=== PATIENT | female | born 1945 | race Caucasian/White ===

== ENCOUNTER 2021-09-22 01:19 | Inpatient (IN) | payer BC, OTHER ==
[~2021-09-22] VITALS: Ht 154.9 cm; Wt 63.5 kg
[2021-09-22 03:05] LABS: Basophils # (auto) 0.1 10 ^3/uL (0-0.2); Basophils % (auto) 0.7 % (0.0-2.0); Eosinophils # (auto) 0.1 10 ^3/uL (0-0.8); Eosinophils % (auto) 0.5 % (0.0-7.0); Hematocrit 42.7 % (36.0-46.0); Hemoglobin 14.3 g/dL (12.2-16.2); Lymphocytes # (auto) 1.7 10 ^3/uL (0.4-5.4); Lymphocytes % (auto) 10.9 % (10.0-50.0); Mean Corpuscular Hemoglobin 32.3 pg (28.0-32.0); Mean Corpuscular Hgb Conc. 33.6 g/dL (32.0-36.0); Mean Corpuscular Volume 96.4 fL (80.0-100.0); Monocytes # (auto) 0.8 10 ^3/uL (0-1.3); Monocytes % (auto) 5.3 % (0.0-12.0); Neutrophils # (auto) 12.8 10 ^3/uL (1.6-8.6); Neutrophils % (auto) 82.6 % (37.0-80.0); Nucleated Red Blood Cells % 0.1 %; Red Blood Cells 4.43 10^6/uL (4.0-5.20); Red Cell Distribution Width 12.3 % (11.8-14.3); White Blood Cell 15.4 10^3/uL (4.4-10.8)
[2021-09-22 03:25] LABS: Magnesium 3.2 mg/dL (1.6-2.6); Potassium 3.5 mmol/L (3.5-5.1)
[2021-09-22 03:31] LABS: BUN/Creatinine Ratio 22.2; Bilirubin, Total 1.5 mg/dL (0.2-1.0); Total Protein 7.5 g/dL (6.4-8.2)
[2021-09-22 06:07] LABS: Urine Bacteria NONE SEEN /hpf (None Seen); Urine Blood Negative /uL (Negative); Urine Mucus FEW (None Seen); Urine Specific Gravity 1.022 (1.001-1.035); Urine WBC 1 /hpf (0 - 5)
[2021-09-22] MEDS ORDERED: ONDANSETRON HCL 4 MG/2 ML VIAL IV ONE (07:00)
[2021-09-22] MEDS ORDERED: MORPHINE SULFATE 4 MG/ML SYR/VIAL IV ONE (07:00)
[2021-09-22] MEDS ORDERED: SODIUM CHLORIDE 0.9% 1,000 ML IVB ONE (07:00)
[2021-09-22] MEDS ORDERED: metroNIDAZOLE 500MG/100ML 100 ML IV ONE (07:00)
[2021-09-22] MEDS ORDERED: MORPHINE SULFATE INJECTION 2 MG/ML SYRG IV PRN ×2 (09:00→09:15)
[2021-09-22] MEDS ORDERED: NITROGLYCERIN 0.4 MG SL TAB SL PRN (09:00)
[2021-09-22] MEDS ORDERED: ONDANSETRON HCL 4 MG/2 ML VIAL IV PRN (09:15)
[2021-09-22] MEDS ORDERED: cefTRIAXone 1GM/50ML D5W 50 ML IV ONE (09:15)
[2021-09-22] MEDS ORDERED: traMADol HCL 50 MG TAB PO PRN (09:15)
[2021-09-22] MEDS ORDERED: ACETAMINOPHEN 500 MG TAB PO PRN (09:15)
[2021-09-22] MEDS ORDERED: DEXTROSE (50%) 50ML SYRG IV PRN (09:15)
[2021-09-22] MEDS: SODIUM CHLORIDE 0.9% 1,000 ML IV SCH ×2 (10:11→19:15)
[2021-09-22] MEDS: PANTOPRAZOLE 40 MG TAB PO SCH (12:17)
[2021-09-22] MEDS: ACCU-CHEK COMFORT CURVE STRIP VI SCH ×3 (12:18→21:13)
[2021-09-22] MEDS: InsuLIN REG 1unit/0.01ml Soln (100units/ml) SC SCH ×3 (12:25→21:13)
[2021-09-22 13:19] LABS: Urine Bacteria FEW /hpf (None Seen); Urine Blood 3+ /uL (Negative); Urine Mucus FEW (None Seen); Urine Specific Gravity 1.014 (1.001-1.035); Urine WBC 72 /hpf (0 - 5)
[2021-09-22] MEDS: metroNIDAZOLE 500MG/100ML 100 ML IV SCH ×2 (14:07→21:21)
[2021-09-22 14:40] LABS: Hematocrit 37.7 % (36.0-46.0); Hemoglobin 12.9 g/dL (12.2-16.2)
[2021-09-22] MEDS ORDERED: VALS160T53 PO (16:39)
[2021-09-22] MEDS ORDERED: BIMA0.01 EACHEYE (16:39)
[2021-09-22] MEDS ORDERED: METF-370 PO (16:39)
[2021-09-22] MEDS ORDERED: SIMV-8 PO (16:39)
[2021-09-22 17:24] VITALS: BP 147/76
[2021-09-22 18:54] LABS: Hematocrit 37.3 % (36.0-46.0); Hemoglobin 13.1 g/dL (12.2-16.2)
[2021-09-22 22:00] VITALS: BP 138/70
[2021-09-23 00:47] LABS: Hematocrit 36.3 % (36.0-46.0); Hemoglobin 12.2 g/dL (12.2-16.2)
[2021-09-23] MEDS: SODIUM CHLORIDE 0.9% 1,000 ML IV SCH ×2 (04:46→16:00)
[2021-09-23 05:00] VITALS: BP 108/59
[2021-09-23 05:40] LABS: Basophils # (auto) 0 10 ^3/uL (0-0.2); Basophils % (auto) 0.4 % (0.0-2.0); Eosinophils # (auto) 0.1 10 ^3/uL (0-0.8); Eosinophils % (auto) 0.8 % (0.0-7.0); Hematocrit 35.5 % (36.0-46.0); Hemoglobin 11.9 g/dL (12.2-16.2); Lymphocytes # (auto) 1.9 10 ^3/uL (0.4-5.4); Lymphocytes % (auto) 16.7 % (10.0-50.0); Mean Corpuscular Hemoglobin 32.6 pg (28.0-32.0); Mean Corpuscular Hgb Conc. 33.6 g/dL (32.0-36.0); Mean Corpuscular Volume 97.2 fL (80.0-100.0); Monocytes # (auto) 0.9 10 ^3/uL (0-1.3); Neutrophils # (auto) 8.6 10 ^3/uL (1.6-8.6); Neutrophils % (auto) 74.1 % (37.0-80.0); Nucleated Red Blood Cells % 0.1 %; Red Blood Cells 3.65 10^6/uL (4.0-5.20); Red Cell Distribution Width 12.3 % (11.8-14.3); White Blood Cell 11.6 10^3/uL (4.4-10.8)
[2021-09-23 06:12] LABS: Potassium 3.6 mmol/L (3.5-5.1)
[2021-09-23] MEDS: InsuLIN REG 1unit/0.01ml Soln (100units/ml) SC SCH ×4 (06:13→21:29)
[2021-09-23] MEDS: ACCU-CHEK COMFORT CURVE STRIP VI SCH ×4 (06:14→21:30)
[2021-09-23] MEDS: metroNIDAZOLE 500MG/100ML 100 ML IV SCH ×3 (06:18→22:24)
[2021-09-23 06:23] LABS: BUN/Creatinine Ratio 7.8; Calcium 8.1 mg/dL (8.5-10.1)
[2021-09-23 06:25] LABS: Bilirubin, Total 1.5 mg/dL (0.2-1.0); Total Protein 5.3 g/dL (6.4-8.2)
[2021-09-23 08:30] VITALS: BP 122/67
[2021-09-23] MEDS: cefTRIAXone 1GM/50ML D5W 50 ML IV SCH (08:41)
[2021-09-23] MEDS: PANTOPRAZOLE 40 MG TAB PO SCH (08:41)
[2021-09-23 13:30] VITALS: BP 129/79
[2021-09-23] MEDS ORDERED: GOLYTELY 4L KIT PO ONE (14:15)
[2021-09-23 16:30] VITALS: BP 122/69
[2021-09-23 22:00] VITALS: BP 157/80
[2021-09-24] VITALS (7 sets, daily range): BP systolic 111–140; BP diastolic 63–78
[2021-09-24] MEDS: ACCU-CHEK COMFORT CURVE STRIP VI SCH ×4 (07:00→21:35)
[2021-09-24] MEDS: InsuLIN REG 1unit/0.01ml Soln (100units/ml) SC SCH ×4 (07:00→21:34)
[2021-09-24] MEDS: SODIUM CHLORIDE 0.9% 1,000 ML IV SCH ×3 (07:39→17:55)
[2021-09-24] MEDS: metroNIDAZOLE 500MG/100ML 100 ML IV SCH ×3 (07:39→21:34)
[2021-09-24 08:25] LABS: INR 1.08 (0.9-1.15); Partial Thromboplastin Time 27.2 sec (23.6-33.0)
[2021-09-24 08:28] LABS: BUN/Creatinine Ratio 4.3; Calcium 8.6 mg/dL (8.5-10.1); Potassium 3.5 mmol/L (3.5-5.1)
[2021-09-24] MEDS ORDERED: SODIUM CHLORIDE LOCK 10 ML ONE (08:55)
[2021-09-24] MEDS ORDERED: diphenhdrAMINE HCL 50 MG/1 ML VL ONE (08:56)
[2021-09-24] MEDS: PANTOPRAZOLE 40 MG TAB PO SCH ×2 (09:28→14:35)
[2021-09-24] MEDS: cefTRIAXone 1GM/50ML D5W 50 ML IV SCH (09:28)
[2021-09-24] MEDS: fentaNYL CITRATE 100 MCG/2 ML VL ONE ×3 (12:50→12:57)
[2021-09-24] MEDS: MIDAZOLAM HCL 5 MG/ML-1ML VIAL ONE ×3 (12:50→12:57)
[2021-09-25 05:25] VITALS: BP 129/69
[2021-09-25] MEDS: metroNIDAZOLE 500MG/100ML 100 ML IV SCH ×2 (05:48→14:30)
[2021-09-25] MEDS: ACCU-CHEK COMFORT CURVE STRIP VI SCH ×2 (06:02→11:25)
[2021-09-25] MEDS: InsuLIN REG 1unit/0.01ml Soln (100units/ml) SC SCH ×2 (06:03→11:25)
[2021-09-25] MEDS: SODIUM CHLORIDE 0.9% 1,000 ML IV SCH (07:00)
[2021-09-25 07:10] LABS: Basophils # (auto) 0.1 10 ^3/uL (0-0.2); Basophils % (auto) 0.5 % (0.0-2.0); Eosinophils # (auto) 0.2 10 ^3/uL (0-0.8); Eosinophils % (auto) 2.4 % (0.0-7.0); Hematocrit 33.5 % (36.0-46.0); Hemoglobin 11.5 g/dL (12.2-16.2); Lymphocytes # (auto) 1.8 10 ^3/uL (0.4-5.4); Lymphocytes % (auto) 18.6 % (10.0-50.0); Mean Corpuscular Hgb Conc. 34.2 g/dL (32.0-36.0); Mean Corpuscular Volume 96.4 fL (80.0-100.0); Monocytes # (auto) 0.7 10 ^3/uL (0-1.3); Monocytes % (auto) 7.3 % (0.0-12.0); Neutrophils % (auto) 71.2 % (37.0-80.0); Nucleated Red Blood Cells % 0.1 %; Red Blood Cells 3.47 10^6/uL (4.0-5.20); Red Cell Distribution Width 11.8 % (11.8-14.3); White Blood Cell 9.9 10^3/uL (4.4-10.8)
[2021-09-25 08:30] VITALS: BP 138/71
[2021-09-25 09:00] VITALS: BP 138/71
[2021-09-25] MEDS: cefTRIAXone 1GM/50ML D5W 50 ML IV SCH (09:45)
[2021-09-25] MEDS: PANTOPRAZOLE 40 MG TAB PO SCH (09:45)
[2021-09-25] MEDS ORDERED: LEVO500T31 PO (11:28)
[2021-09-25] MEDS ORDERED: METR500T PO (11:28)
[2021-09-25 13:00] VITALS: BP 132/78
[2021-09-25 14:30] VITALS: BP 132/78
== END 2021-09-25 15:55 | disposition home or self-care (01) | DRG 394 ==
LOC: EDBD 01:19 → ER 01:23 → TELE 09:00 → TELE-WESTW 15:44
PROVIDERS: ADMIT Internal Medicine; ATTEND Family Medicine
PROC: 0DBN8ZZ Excision of Sigmoid Colon, Via Natural or Artificial Opening Endoscopic (ICD-10-PCS; 2021-09-24)
PROC: 0DBM8ZX Excision of Descending Colon, Via Natural or Artificial Opening Endoscopic, Diagnostic (ICD-10-PCS; principal; 2021-09-24 12:45)
DX: K55.9 Vascular disorder of intestine, unspecified (principal); D62 Acute posthemorrhagic anemia; N20.1 Calculus of ureter; K64.8 Other hemorrhoids; K44.9 Diaphragmatic hernia without obstruction or gangrene; K63.5 Polyp of colon; E11.9 Type 2 diabetes mellitus without complications; E78.00 Pure hypercholesterolemia, unspecified; I10 Essential (primary) hypertension; E78.5 Hyperlipidemia, unspecified; E66.3 Overweight; Z20.822 Contact with and (suspected) exposure to COVID-19; Z80.3 Family history of malignant neoplasm of breast; Z87.442 Personal history of urinary calculi; Z87.891 Personal history of nicotine dependence; Z90.5 Acquired absence of kidney; Z98.51 Tubal ligation status
CPT/HCPCS: 36415; 45380; 45385; 74176; 80048; 80053; 81001; 82270; 82962; 83036; 83690; 83735; 84484; 85014; 85018; 85025; 85045; 85610; 85652; 85730; 87426; 87493; 93005; 96365; 96366; 96367; G0378; J0696; J2250; J3490

== ENCOUNTER 2023-10-12 09:05 | Inpatient (IN) | payer BC ==
[~2023-10-12] VITALS: Ht 154.9 cm; Wt 65.4 kg
[~2023-10-12 09:05] MED LIST: BIMA0.01 EACHEYE; LEVO500T31 PO; METF-370 PO; METR500T PO; SIMV20TA20 PO; VALS160T53 PO
[2023-10-12] MEDS ORDERED: SODIUM CHLORIDE 0.9% 500 ML IV ONE (09:15)
[2023-10-12 10:00] LABS: Basophils # (auto) 0 10 ^3/uL (0-0.2); Basophils % (auto) 0.3 % (0.0-2.0); Eosinophils # (auto) 0 10 ^3/uL (0-0.8); Eosinophils % (auto) 0.1 % (0.0-7.0); Hematocrit 37.8 % (36.0-46.0); Lymphocytes # (auto) 0.9 10 ^3/uL (0.4-5.4); Lymphocytes % (auto) 16.7 % (10.0-50.0); Mean Corpuscular Hemoglobin 32.8 pg (28.0-32.0); Mean Corpuscular Hgb Conc. 34.3 g/dL (32.0-36.0); Mean Corpuscular Volume 95.6 fL (80.0-100.0); Monocytes # (auto) 0.8 10 ^3/uL (0-1.3); Neutrophils # (auto) 3.7 10 ^3/uL (1.6-8.6); Neutrophils % (auto) 68.9 % (37.0-80.0); Nucleated Red Blood Cells % 0.1 %; Red Blood Cells 3.96 10^6/uL (4.0-5.20); Red Cell Distribution Width 12.1 % (11.8-14.3); White Blood Cell 5.4 10^3/uL (4.4-10.8)
[2023-10-12 10:16] LABS: Chloride 103 mmol/L (98-107); Potassium 3.5 mmol/L (3.5-5.1); Sodium 137 mmol/L (136-145)
[2023-10-12 10:17] LABS: Anion Gap 6 (5-15); Calcium 8.9 mg/dL (8.5-10.1); Carbon Dioxide 28 mmol/L (20-30)
[2023-10-12 10:22] LABS: BUN/Creatinine Ratio 17.8 (10.0-20.0); Blood Urea Nitrogen 13 mg/dL (9-23); Glucose 134 mg/dL (74-106)
[2023-10-12 11:04] LABS: COVID19 ANTIGEN SOFIA FIA POSITIVE (NEGATIVE)
[2023-10-12] MEDS ORDERED: DexAMETHasone SOD PHOS 10MG/1ML VIAL INJ IV ONE (13:15)
[2023-10-12] MEDS ORDERED: NITROGLYCERIN 0.4 MG SL TAB SL PRN (13:15)
[2023-10-12] MEDS ORDERED: MORPHINE SULFATE INJ 2 MG/ml SYRG IV PRN (13:15)
[2023-10-12] MEDS ORDERED: SODIUM CHLORIDE 0.9% 1,000 ML IV ONE (13:15)
[2023-10-12 13:58] LABS: Alanine Aminotransferase 54 U/L (7-40); Albumin 4.4 g/dL (3.2-4.8); Alkaline Phosphatase 79 U/L (46-116); Anion Gap 7 (5-15); Aspartate Aminotransferase 41 U/L (13-40); BUN/Creatinine Ratio 14.7 (10.0-20.0); Blood Urea Nitrogen 10 mg/dL (9-23); Calcium 8.5 mg/dL (8.7-10.4); Carbon Dioxide 26 mmol/L (20-30); Chloride 104 mmol/L (98-107); Glucose 137 mg/dL (74-106); Magnesium 2.1 mg/dL (1.6-2.6); Potassium 3.4 mmol/L (3.5-5.1); Sodium 137 mmol/L (136-145)
[2023-10-12 13:59] LABS: INR 1.02 (0.9-1.15); Prothrombin Time 10.7 sec (9.3-11.8)
[2023-10-12] MEDS ORDERED: ACETAMINOPHEN 500 MG TAB PO PRN (15:30)
[2023-10-12] MEDS ORDERED: POTASSIUM EFFERVESENT TAB 25 MEQ PO ONE (15:30)
[2023-10-12] MEDS ORDERED: CHOLECALCIFEROL (VITD3) 2,000 UNIT CAP/TAB PO ONE (15:30)
[2023-10-12] MEDS ORDERED: ONDANSETRON HCL 4 MG/2 ML VIAL IV PRN (15:30)
[2023-10-12] MEDS ORDERED: ZINC SULFATE 220mg CAP or TAB PO ONE (15:30)
[2023-10-12] MEDS ORDERED: DEXTROSE (50%) 50ML SYRG IV PRN (15:45)
[2023-10-12] MEDS ORDERED: hydrALAZINE HCL 20 MG/ML VL IV PRN (15:45)
[2023-10-12 16:00] VITALS: PULSE 75; RESP 25; O2SAT 95
[2023-10-12 16:59] LABS: Triglycerides 95 mg/dL (< 150)
[2023-10-12 17:00] LABS: LDL Cholesterol 79 mg/dL (< 100)
[2023-10-12 17:01] LABS: Cholesterol 129 mg/dL (< 200); HDL Cholesterol 39 mg/dL (40-59)
[2023-10-12] MEDS: InsuLIN REG 1unit/0.01ml Soln (100units/ml) SC SCH ×2 (17:51→23:09)
[2023-10-12] MEDS: ACCU-CHEK COMFORT CURVE STRIP VI SCH ×2 (17:51→23:09)
[2023-10-12] MEDS: SODIUM CHLORIDE 0.9% 1,000 ML IV SCH (17:57)
[2023-10-12 18:38] LABS: Urine Epithelial Cast None Seen /hpf (<5)
[2023-10-12 18:45] LABS: Urine Bacteria NONE SEEN /hpf (None Seen); Urine Blood Negative /uL (Negative); Urine Clarity HAZY (Clear); Urine Color Yellow (Yellow); Urine Hyaline Cast FEW /lpf (0 - 2); Urine Mucus FEW (None Seen); Urine Protein, UAD 1+ (Negative); Urine Specific Gravity 1.029 (1.001-1.035); Urine Urobilinogen Normal (Negative); Urine WBC 23 /hpf (0 - 5)
[2023-10-12] MEDS ORDERED: cefTRIAXone 1GM/50ML D5W 50 ML IV ONE (20:15)
[2023-10-12 21:00] LABS: Rapid Influenza A Negative (Negative); Rapid Influenza B Negative (Negative)
[2023-10-12] MEDS: ASCORBIC ACID 500 MG TAB PO SCH (23:14)
[2023-10-12 23:33] VITALS: PULSE 65; RESP 21; O2SAT 95
[2023-10-13] MEDS: SODIUM CHLORIDE 0.9% 1,000 ML IV SCH ×3 (01:30→22:03)
[2023-10-13 04:52] LABS: Basophils # (auto) 0 10 ^3/uL (0-0.2); Basophils % (auto) 0.5 % (0.0-2.0); Eosinophils # (auto) 0 10 ^3/uL (0-0.8); Eosinophils % (auto) 0.1 % (0.0-7.0); Hematocrit 35.8 % (36.0-46.0); Lymphocytes # (auto) 1.4 10 ^3/uL (0.4-5.4); Mean Corpuscular Hemoglobin 32.3 pg (28.0-32.0); Mean Corpuscular Hgb Conc. 33.4 g/dL (32.0-36.0); Mean Corpuscular Volume 96.6 fL (80.0-100.0); Monocytes # (auto) 0.7 10 ^3/uL (0-1.3); Monocytes % (auto) 14.7 % (0.0-12.0); Neutrophils # (auto) 2.8 10 ^3/uL (1.6-8.6); Neutrophils % (auto) 56.7 % (37.0-80.0); Nucleated Red Blood Cells % 0.2 %; Red Cell Distribution Width 12.5 % (11.8-14.3)
[2023-10-13 05:08] LABS: Alanine Aminotransferase 45 U/L (7-40); Alkaline Phosphatase 67 U/L (46-116); Anion Gap 6 (5-15); BUN/Creatinine Ratio 14.8 (10.0-20.0); Blood Urea Nitrogen 9 mg/dL (9-23); Calcium 8.1 mg/dL (8.7-10.4); Carbon Dioxide 27 mmol/L (20-30); Chloride 106 mmol/L (98-107); Glucose 124 mg/dL (74-106); Potassium 3.3 mmol/L (3.5-5.1); Sodium 139 mmol/L (136-145)
[2023-10-13 05:09] LABS: Albumin 3.8 g/dL (3.2-4.8); Aspartate Aminotransferase 34 U/L (13-40); Bilirubin, Total 0.8 mg/dL (0.2-1.0); Total Protein 6.1 g/dL (5.7-8.2)
[2023-10-13 05:10] LABS: Folate (Folic Acid) > 24.00 ng/mL (>5.38)
[2023-10-13 06:12] LABS: CRP High Sensitivity 3.95 mg/dL (<1.0)
[2023-10-13] MEDS: ACCU-CHEK COMFORT CURVE STRIP VI SCH ×4 (06:56→22:02)
[2023-10-13] MEDS: InsuLIN REG 1unit/0.01ml Soln (100units/ml) SC SCH ×4 (06:56→22:00)
[2023-10-13] MEDS ORDERED: POTASSIUM EFFERVESENT TAB 25 MEQ PO ONE (08:00)
[2023-10-13 08:37] VITALS: PULSE 88; RESP 18; O2SAT 98
[2023-10-13] MEDS ORDERED: POTASSIUM CHLORIDE 40 MEQ, LIDOCAINE 1% (LOCAL ANESTH.) 4 ML in SODIUM CHL 0.9% 250 ML IV ONE (09:15)
[2023-10-13] MEDS: cefTRIAXone 1GM/50ML D5W 50 ML IV SCH (09:28)
[2023-10-13] MEDS ORDERED: DexAMETHasone SOD PHOS 10MG/1ML VIAL INJ IV SCH (10:00)
[2023-10-13] MEDS: CHOLECALCIFEROL (VITD3) 2,000 UNIT CAP/TAB PO SCH (10:00)
[2023-10-13] MEDS ORDERED: PANTOPRAZOLE 40 MG TAB PO SCH (10:00)
[2023-10-13] MEDS: ASCORBIC ACID 500 MG TAB PO SCH ×2 (10:00→22:02)
[2023-10-13] MEDS: ZINC SULFATE 220mg CAP or TAB PO SCH (11:10)
[2023-10-13 23:50] VITALS: BP 141/65; PULSE 84; RESP 18; TEMP 98.5; O2SAT 94
[2023-10-14 05:15] LABS: Basophils # (auto) 0 10 ^3/uL (0-0.2); Basophils % (auto) 0.4 % (0.0-2.0); Eosinophils # (auto) 0 10 ^3/uL (0-0.8); Hematocrit 34.5 % (36.0-46.0); Hemoglobin 11.6 g/dL (12.2-16.2); Lymphocytes # (auto) 1.2 10 ^3/uL (0.4-5.4); Mean Corpuscular Hemoglobin 32.7 pg (28.0-32.0); Mean Corpuscular Hgb Conc. 33.5 g/dL (32.0-36.0); Mean Corpuscular Volume 97.5 fL (80.0-100.0); Monocytes # (auto) 0.6 10 ^3/uL (0-1.3); Monocytes % (auto) 11.4 % (0.0-12.0); Neutrophils # (auto) 3.7 10 ^3/uL (1.6-8.6); Neutrophils % (auto) 67.2 % (37.0-80.0); Nucleated Red Blood Cells % 0.1 %; Red Blood Cells 3.54 10^6/uL (4.0-5.20); Red Cell Distribution Width 12.3 % (11.8-14.3); White Blood Cell 5.5 10^3/uL (4.4-10.8)
[2023-10-14 05:34] LABS: Alanine Aminotransferase 41 U/L (7-40); Alkaline Phosphatase 73 U/L (46-116); Calcium 8.3 mg/dL (8.5-10.1); Carbon Dioxide 26 mmol/L (20-30); Chloride 108 mmol/L (98-107)
[2023-10-14 05:35] LABS: Albumin 3.7 g/dL (3.2-4.8); Anion Gap 5 (5-15); Aspartate Aminotransferase 37 U/L (13-40); BUN/Creatinine Ratio 8.7 (10.0-20.0); Bilirubin, Total 0.8 mg/dL (0.2-1.0); Blood Urea Nitrogen 6 mg/dL (9-23); Glucose 129 mg/dL (74-106); Potassium 3.6 mmol/L (3.5-5.1); Sodium 139 mmol/L (136-145); Total Protein 5.8 g/dL (5.7-8.2)
[2023-10-14 05:43] LABS: CRP High Sensitivity 3.72 mg/dL (<1.0)
[2023-10-14 06:03] LABS: Magnesium 1.9 mg/dL (1.6-2.6)
[2023-10-14] MEDS: InsuLIN REG 1unit/0.01ml Soln (100units/ml) SC SCH ×2 (06:47→11:30)
[2023-10-14] MEDS: ACCU-CHEK COMFORT CURVE STRIP VI SCH ×2 (06:47→11:30)
[2023-10-14] MEDS: SODIUM CHLORIDE 0.9% 1,000 ML IV SCH (07:30)
[2023-10-14] MEDS ORDERED: POTASSIUM CHL 20 Meq TABLET PO ONE (08:45)
[2023-10-14 09:00] VITALS: BP 128/70; PULSE 76; RESP 15; TEMP 98.1; O2SAT 90
[2023-10-14] MEDS: cefTRIAXone 1GM/50ML D5W 50 ML IV SCH (09:00)
[2023-10-14] MEDS ORDERED: CEFPODOXIME PROXETIL 200 MG TAB PO ONE (10:30)
[2023-10-14] MEDS ORDERED: CEFP200T15 PO (10:45)
[2023-10-14] MEDS ORDERED: ASCO500T11 PO (10:45)
[2023-10-14] MEDS ORDERED: ZINC220C10 PO (10:46)
[2023-10-14] MEDS ORDERED: CHOL1CAP47 PO (10:46)
[2023-10-14] MEDS ORDERED: DEXA6TAB PO (10:49)
[2023-10-14] MEDS: ZINC SULFATE 220mg CAP or TAB PO SCH (10:51)
[2023-10-14] MEDS: ASCORBIC ACID 500 MG TAB PO SCH (10:51)
[2023-10-14] MEDS: CHOLECALCIFEROL (VITD3) 2,000 UNIT CAP/TAB PO SCH (10:51)
[2023-10-14 11:00] VITALS: O2SAT 96
[2023-10-14] MEDS ORDERED: DexAMETHasone 4 MG TAB PO ONE (11:00)
[2023-10-14] MEDS ORDERED: CEFPODOXIME PROXETIL 200 MG TAB PO SCH (22:00)
== END 2023-10-14 13:30 | disposition home or self-care (01) | DRG 177 ==
LOC: ER 09:05 → EDUNIT# 09:05 → EDBD 09:05 → OVERFLOW 13:21 → EAST 10-13 23:24
PROVIDERS: ADMIT Internal Medicine Geriatric Medicine; ATTEND Internal Medicine Geriatric Medicine
DX: U07.1 COVID-19 (principal); J12.9 Viral pneumonia, unspecified; J96.01 Acute respiratory failure with hypoxia; N39.0 Urinary tract infection, site not specified; R55 Syncope and collapse; E87.6 Hypokalemia; E11.9 Type 2 diabetes mellitus without complications; E78.5 Hyperlipidemia, unspecified; E86.1 Hypovolemia; I25.10 Atherosclerotic heart disease of native coronary artery without angina pectoris; R74.01 Elevation of levels of liver transaminase levels; F10.20 Alcohol dependence, uncomplicated; I10 Essential (primary) hypertension; Z87.891 Personal history of nicotine dependence
CPT/HCPCS: 36415; 70450; 71045; 80048; 80053; 80061; 81001; 82607; 82746; 82962; 83036; 83605; 83735; 84443; 84484; 85025; 85379; 85610; 86141; 87086; 87426; 87804; 93005; 93306; 93886; 96361; 96365; 99291; G0378; J1100; J2001

== ENCOUNTER → 2024-07-20 | Outpatient (CLI) | payer BC ==
[~2024-07-20] MED LIST changes: +ASCO500T11 PO; +CEFP200T15 PO; +CHOL1CAP47 PO; +DEXA6TAB PO; -LEVO500T31 PO; -METR500T PO; +ZINC220C10 PO
[2024-07-20 09:08] LABS: Basophils # (auto) 0.1 10 ^3/uL (0-0.2); Basophils % (auto) 1.2 % (0.0-2.0); Eosinophils # (auto) 0.3 10 ^3/uL (0-0.8); Eosinophils % (auto) 3.6 % (0.0-7.0); Hemoglobin 14.3 g/dL (12.2-16.2); Lymphocytes # (auto) 2.6 10 ^3/uL (0.4-5.4); Lymphocytes % (auto) 31.9 % (10.0-50.0); Mean Corpuscular Hemoglobin 32.1 pg (28.0-32.0); Mean Corpuscular Hgb Conc. 33.2 g/dL (32.0-36.0); Mean Corpuscular Volume 96.6 fL (80.0-100.0); Monocytes # (auto) 0.8 10 ^3/uL (0-1.3); Monocytes % (auto) 9.9 % (0.0-12.0); Neutrophils # (auto) 4.3 10 ^3/uL (1.6-8.6); Neutrophils % (auto) 53.4 % (37.0-80.0); Platelet Count (auto) 314 10^3/uL (140-450); Red Blood Cells 4.45 10^6/uL (4.0-5.20); Red Cell Distribution Width 12.6 % (11.8-14.3); White Blood Cell 8.1 10^3/uL (4.4-10.8)
[2024-07-20 09:43] LABS: Alanine Aminotransferase 47 U/L (7-40); Alkaline Phosphatase 82 U/L (46-116); Amylase 71 U/L (30-118); Anion Gap 7 (5-15); BUN/Creatinine Ratio 20.2 (10.0-20.0); Blood Urea Nitrogen 17 mg/dL (9-23); Calcium 10.1 mg/dL (8.7-10.4); Carbon Dioxide 29 mmol/L (20-31); Chloride 103 mmol/L (98-107); Glucose 138 mg/dL (74-106); LDL Cholesterol 135 mg/dL (< 100); Potassium 4.1 mmol/L (3.5-5.1); Sodium 139 mmol/L (136-145); Triglycerides 251 mg/dL (< 150)
[2024-07-20 09:44] LABS: Albumin 4.3 g/dL (3.2-4.8); Aspartate Aminotransferase 27 U/L (13-40); Bilirubin, Total 1.2 mg/dL (0.2-1.0); Cholesterol 201 mg/dL (< 200); HDL Cholesterol 47 mg/dL (40-59); Total Protein 7.2 g/dL (5.7-8.2)
[2024-07-20 10:00] LABS: Creatinine, Urine 92.73 mg/dL (30.0-125.0)
[2024-07-20 11:04] LABS: Lipase 60 U/L (12-53)
== END | disposition home or self-care (01) ==
LOC: LAB 08:50
PROVIDERS: ATTEND Internal Medicine
DX: E11.9 Type 2 diabetes mellitus without complications (principal); E78.5 Hyperlipidemia, unspecified; D64.9 Anemia, unspecified
CPT/HCPCS: 36415; 80053; 80061; 82043; 82150; 82570; 83036; 83690; 85025

== ENCOUNTER → 2024-08-24 | Outpatient (CLI) | payer BC ==
[2024-08-24 09:48] LABS: Albumin 4.5 g/dL (3.2-4.8); Bilirubin, Direct 0.3 mg/dL (<0.3); Bilirubin, Total 1.2 mg/dL (0.2-1.0); Total Protein 7.3 g/dL (5.7-8.2)
[2024-08-24 10:55] LABS: % Iron Saturation 32.3 % (15-50)
[2024-08-25 09:06] LABS: Complement C3 117 mg/dL (82-167); Rheumatoid Arthritis Factor 11.4 IU/mL (<14.0)
[2024-08-25 10:55] LABS: Hepatitis A Ab IgM Negative; Hepatitis B Core IgM Negative (Negative); Hepatitis B Surface Antigen Negative (Negative); Hepatitis C Antibody Negative (Negative)
[2024-08-25 12:06] LABS: Anti-Nuclear Antibody Direct Negative (Negative); Anti-dsDNA Antibody 1 IU/mL (0-9); Antiscleroderma-70 Antibody <0.2 AI (0.0-0.9); RNP Antibody <0.2 AI (0.0-0.9); Sjogren's Anti-SS-A Antibody <0.2 AI (0.0-0.9); Sjogren's Anti-SS-B Antibody <0.2 AI (0.0-0.9); Smith Antibody <0.2 AI (0.0-0.9)
[2024-08-25 13:07] LABS: Thyroid Peroxidase (TPO) Ab 158 IU/mL (0-34)
== END | disposition home or self-care (01) ==
LOC: LAB 08:43
PROVIDERS: ATTEND Internal Medicine
DX: D64.9 Anemia, unspecified (principal); R79.89 Other specified abnormal findings of blood chemistry; E78.5 Hyperlipidemia, unspecified
CPT/HCPCS: 36415; 80074; 80076; 82728; 83540; 83550; 86160; 86225; 86235; 86376; 86431

== ENCOUNTER → 2024-11-01 | Outpatient (CLI) | payer BC ==
[2024-11-01 08:50] LABS: Albumin 4.5 g/dL (3.2-4.8); Total Protein 6.7 g/dL (5.7-8.2)
[2024-11-02 12:58] LABS: Bilirubin, Direct 0.3 mg/dL (<0.3)
== END | disposition home or self-care (01) ==
LOC: LAB 07:39
PROVIDERS: ATTEND Internal Medicine
DX: E78.5 Hyperlipidemia, unspecified (principal)
CPT/HCPCS: 36415; 80061; 80076

== ENCOUNTER 2025-04-04 07:03 | Outpatient (CLI) | payer BC ==
[2025-04-04 08:41] LABS: Alanine Aminotransferase 40 U/L (7-40); Albumin 4.5 g/dL (3.2-4.8); Alkaline Phosphatase 74 U/L (46-116); Anion Gap 9 (5-15); BUN/Creatinine Ratio 25.6 (10.0-20.0); Blood Urea Nitrogen 23 mg/dL (9-23); Calcium 10.4 mg/dL (8.7-10.4); Carbon Dioxide 28 mmol/L (20-31); Chloride 104 mmol/L (98-107); Potassium 4.1 mmol/L (3.5-5.1); Sodium 141 mmol/L (136-145); Total Protein 6.9 g/dL (5.7-8.2)
[2025-04-04 08:42] LABS: Bilirubin, Total 1.1 mg/dL (0.2-1.0); Cholesterol 192 mg/dL (< 200); HDL Cholesterol 54 mg/dL (40-59)
[2025-04-04 08:43] LABS: Glucose 137 mg/dL (74-106); Triglycerides 190 mg/dL (< 150)
[2025-04-04 08:58] LABS: Microalb/Creat Ratio, Urine 31.0
== END 2025-04-04 17:00 | disposition home or self-care (01) ==
LOC: LAB 07:03
PROVIDERS: ATTEND Internal Medicine
DX: E11.9 Type 2 diabetes mellitus without complications (principal); Z00.00 Encounter for general adult medical examination without abnormal findings
CPT/HCPCS: 36415; 80053; 80061; 82043; 82570; 83036

== ENCOUNTER 2025-08-15 08:11 | Outpatient (CLI) | payer BC ==
[2025-08-15 08:35] LABS: Hematocrit 42.4 % (36.0-46.0); Hemoglobin 14.4 g/dL (12.2-16.2); Mean Corpuscular Hemoglobin 32.7 pg (28.0-32.0); Mean Corpuscular Volume 96.3 fL (80.0-100.0); Nucleated Red Blood Cells % 0.1 %
[2025-08-15 08:54] LABS: Alanine Aminotransferase 39 U/L (7-40); Albumin 4.5 g/dL (3.2-4.8); Alkaline Phosphatase 79 U/L (46-116); Anion Gap 10 (5-15); BUN/Creatinine Ratio 27.3 (10.0-20.0); Blood Urea Nitrogen 21 mg/dL (9-23); Calcium 9.6 mg/dL (8.7-10.4); Carbon Dioxide 29 mmol/L (20-31); Chloride 103 mmol/L (98-107); Potassium 4.2 mmol/L (3.5-5.1); Sodium 142 mmol/L (136-145); Total Protein 7.3 g/dL (5.7-8.2)
[2025-08-15 09:07] LABS: Bilirubin, Total 1.3 mg/dL (0.2-1.0); Glucose 136 mg/dL (74-106)
[2025-08-15 09:19] LABS: Cholesterol 198 mg/dL (< 200); HDL Cholesterol 53 mg/dL (40-59)
[2025-08-15 09:20] LABS: Triglycerides 217 mg/dL (< 150)
== END 2025-08-15 17:00 | disposition home or self-care (01) ==
LOC: LAB 08:11
PROVIDERS: ATTEND Internal Medicine
DX: E11.9 Type 2 diabetes mellitus without complications (principal); E78.5 Hyperlipidemia, unspecified; J44.9 Chronic obstructive pulmonary disease, unspecified; K76.0 Fatty (change of) liver, not elsewhere classified; Z79.899 Other long term (current) drug therapy
CPT/HCPCS: 36415; 80053; 80061; 82306; 83036; 84443; 85025